=== PATIENT | male | born 1995 | race African-American/Black ===

== ENCOUNTER 2023-11-26 10:09 | Emergency (ER) | payer BC, SELFPAY ==
[2023-11-26] MEDS ORDERED: Cyclobenzaprine 10 MG TAB ONE (11:48)
[2023-11-26] MEDS ORDERED: Ketorolac Tromethamine 30 MG (1 mL) VIAL ONE (11:48)
== END 2023-11-26 12:03 | disposition home or self-care (01) ==
LOC: CSHERS 10:09
DX: M54.16 Radiculopathy, lumbar region (principal); J45.909 Unspecified asthma, uncomplicated; L30.9 Dermatitis, unspecified; F17.210 Nicotine dependence, cigarettes, uncomplicated; F17.290 Nicotine dependence, other tobacco product, uncomplicated; Z55.6 Problems related to health literacy
CPT/HCPCS: 96372; 99283; J1885